=== PATIENT | female | born 1965 | race Caucasian/White ===

== ENCOUNTER 2020-06-15 13:40 | Emergency (ER) | payer OTHER ==
[~2020-06-15] VITALS: Ht 172.7 cm; Wt 145.1 kg
[2020-06-15 14:28] LABS: BASO % 0.3 % (0.0-1.0); EOS # 0.3 10*3/uL (0.0-0.4); EOS % 2.9 % (1.0-4.0); HEMATOCRIT 33.4 % (37.0-47.0); LYMPH # 1.3 10*3/uL (1.3-4.4); LYMPH % 13.2 % (27.0-41.0); MEAN CELL VOLUME 95.7 fl (81.0-99.0); MEAN CORPUSCULAR HGB 29.2 pg (27.0-31.0); MEAN CORPUSCULAR HGB CONC 30.5 g/dl (33.0-37.0); MEAN PLATELET VOLUME 9.9 fl (9.6-12.3); MONO # 0.5 10*3/uL (0.1-1.0); MONO % 5.4 % (3.0-9.0); NEUT # 7.8 10*3/uL (2.3-7.9); PLATELET COUNT AUTOMATED 116 10*3/uL (130-400); RED BLOOD COUNT 3.49 10*6/uL (4.10-5.10); RED CELL DISTRI WIDTH 13.8 % (0-14.5); WHITE BLOOD COUNT 10.1 10*3/uL (4.8-10.8)
[2020-06-15 14:42] LABS: ALBUMIN 3.3 gm/dl (3.1-4.5); CREATININE 1.6 mg/dL (0.55-1.02); POTASSIUM 4.3 mmol/L (3.5-5.1); TOTAL PROTEIN 7.9 gm/dL (6.4-8.2)
== END 2020-06-15 18:03 | disposition short-term general hospital (02) ==
LOC: ED 13:40
PROVIDERS: Nurse Practitioner Family
DX: N13.2 Hydronephrosis with renal and ureteral calculous obstruction (principal); J44.9 Chronic obstructive pulmonary disease, unspecified; E11.9 Type 2 diabetes mellitus without complications

== ENCOUNTER → 2020-08-15 | Outpatient (CLI) | payer OTHER ==
[2020-08-15 11:36] LABS: BASO % 0.5 % (0.0-1.0); EOS # 0.3 10*3/uL (0.0-0.4); EOS % 3.6 % (1.0-4.0); HEMATOCRIT 33.4 % (37.0-47.0); LYMPH # 1.6 10*3/uL (1.3-4.4); LYMPH % 21.3 % (27.0-41.0); MEAN CELL VOLUME 94.1 fl (81.0-99.0); MEAN CORPUSCULAR HGB 27.9 pg (27.0-31.0); MEAN CORPUSCULAR HGB CONC 29.6 g/dl (33.0-37.0); MEAN PLATELET VOLUME 10.6 fl (9.6-12.3); MONO # 0.4 10*3/uL (0.1-1.0); MONO % 5.5 % (3.0-9.0); NEUT # 5.3 10*3/uL (2.3-7.9); NEUT % 68.7 % (47.0-73.0); PLATELET COUNT AUTOMATED 134 10*3/uL (130-400); RED BLOOD COUNT 3.55 10*6/uL (4.10-5.10); RED CELL DISTRI WIDTH 16.2 % (0-14.5); WHITE BLOOD COUNT 7.7 10*3/uL (4.8-10.8)
[2020-08-15 11:38] LABS: BILIRUBIN Negative (Negative); BLOOD 2+ (Negative); CLARITY Cloudy (Clear); COLOR Yellow (Yellow); GLUCOSE Negative (Negative); KETONE Negative (Negative); LEUKO ESTERASE 2+ (Negative); NITRITE Negative (Negative); UROBILINOGEN 0.2 E.U./dl (0.0-1.0)
[2020-08-15 11:54] LABS: ALBUMIN 3.8 gm/dl (3.1-4.5); CREATININE 2.67 mg/dL (0.55-1.02); POTASSIUM 3.9 mmol/L (3.5-5.1); TOTAL PROTEIN 8.6 gm/dL (6.4-8.2)
[2020-08-15 11:55] LABS: BACTERIA 2+; EPITHELIAL CELLS 16-20; RBC 31-40 rbc/hpf (0-2); THYROXINE (T4) TOTAL 6.4 ug/dl (4.8-13.9); WBC 41-50 wbc/hpf (0-5)
== END | disposition home or self-care (01) ==
LOC: LAB 11:09
PROVIDERS: ATTEND Urology
DX: N20.0 Calculus of kidney (principal); R31.9 Hematuria, unspecified

== ENCOUNTER → 2020-08-17 | Outpatient (CLI) | payer OTHER | END | disposition home or self-care (01) | LOC: LAB 00:33 | PROVIDERS: ATTEND Urology | DX: N20.0 Calculus of kidney (principal); R31.9 Hematuria, unspecified ==

== ENCOUNTER → 2020-09-06 | Outpatient (CLI) | payer OTHER | END | disposition home or self-care (01) | LOC: CT 11:00 | PROVIDERS: ATTEND Urology | DX: N13.30 Unspecified hydronephrosis (principal); N20.0 Calculus of kidney ==

== ENCOUNTER → 2020-11-13 | Outpatient (CLI) | payer OTHER | END | disposition home or self-care (01) | LOC: CT 12:30 | PROVIDERS: ATTEND Urology | DX: N20.0 Calculus of kidney (principal); K57.30 Diverticulosis of large intestine without perforation or abscess without bleeding ==

== ENCOUNTER → 2021-03-05 | Outpatient (CLI) | payer OTHER | END | disposition home or self-care (01) | LOC: US 02-28 16:00 | PROVIDERS: ATTEND Urology | DX: N20.0 Calculus of kidney (principal) ==

== ENCOUNTER → 2021-04-11 | Outpatient (CLI) | payer OTHER ==
[2021-04-11 13:38] LABS: CREATININE 1.88 mg/dL (0.55-1.02)
== END | disposition home or self-care (01) ==
LOC: CT 12:53
PROVIDERS: Radiology Diagnostic Radiology; ATTEND Urology
DX: Z01.812 Encounter for preprocedural laboratory examination (principal); R31.9 Hematuria, unspecified

== ENCOUNTER → 2021-04-22 | Outpatient (CLI) | payer OTHER ==
[2021-04-22 09:05] LABS: BILIRUBIN Negative (Negative); BLOOD Negative (Negative); CLARITY Clear (Clear); COLOR Yellow (Yellow); GLUCOSE Negative (Negative); KETONE Negative (Negative); LEUKO ESTERASE 1+ (Negative); NITRITE Negative (Negative); SPECIFIC GRAVITY 1.015 (1.001-1.030); UROBILINOGEN 0.2 E.U./dl (0.0-1.0)
[2021-04-22 10:13] LABS: WBC 51-100 wbc/hpf (0-5)
[2021-04-22 10:14] LABS: BACTERIA 1+; YEAST TRACE
== END | disposition home or self-care (01) ==
LOC: LAB 07:53 → CT 08:00
PROVIDERS: ATTEND Urology
DX: N20.0 Calculus of kidney (principal); R31.9 Hematuria, unspecified; I25.10 Atherosclerotic heart disease of native coronary artery without angina pectoris; M51.36 Other intervertebral disc degeneration, lumbar region

== ENCOUNTER → 2021-05-22 | Outpatient (CLI) | payer OTHER ==
[2021-05-22 10:28] LABS: BASO % 0.6 % (0.0-1.0); EOS # 0.3 10*3/uL (0.0-0.4); EOS % 4.1 % (1.0-4.0); HEMATOCRIT 33.8 % (37.0-47.0); LYMPH # 1.7 10*3/uL (1.3-4.4); LYMPH % 23.7 % (27.0-41.0); MEAN CELL VOLUME 96.3 fl (81.0-99.0); MEAN CORPUSCULAR HGB 30.2 pg (27.0-31.0); MEAN CORPUSCULAR HGB CONC 31.4 g/dl (33.0-37.0); MEAN PLATELET VOLUME 9.8 fl (9.6-12.3); MONO # 0.4 10*3/uL (0.1-1.0); MONO % 5.8 % (3.0-9.0); NEUT # 4.6 10*3/uL (2.3-7.9); NEUT % 65.2 % (47.0-73.0); PLATELET COUNT AUTOMATED 113 10*3/uL (130-400); RED BLOOD COUNT 3.51 10*6/uL (4.10-5.10); RED CELL DISTRI WIDTH 13.8 % (0-14.5); WHITE BLOOD COUNT 7.1 10*3/uL (4.8-10.8)
[2021-05-22 10:43] LABS: ALBUMIN 3.5 gm/dl (3.1-4.5); CREATININE 1.83 mg/dL (0.55-1.02); POTASSIUM 4.9 mmol/L (3.5-5.1); TOTAL PROTEIN 7.8 gm/dL (6.4-8.2)
== END | disposition home or self-care (01) ==
LOC: LAB 10:12
PROVIDERS: ATTEND Urology
DX: Z01.812 Encounter for preprocedural laboratory examination (principal)

== ENCOUNTER → 2021-07-15 | Outpatient (CLI) | payer OTHER | END | disposition home or self-care (01) | LOC: CT 10:44 | PROVIDERS: ATTEND Urology | DX: N20.0 Calculus of kidney (principal); K57.30 Diverticulosis of large intestine without perforation or abscess without bleeding; R16.1 Splenomegaly, not elsewhere classified ==

== ENCOUNTER 2022-06-22 19:02 | Emergency (ER) | payer OTHER ==
[~2022-06-22] VITALS: Ht 172.7 cm; Wt 136.1 kg
== END 2022-06-22 23:41 | disposition home or self-care (01) ==
LOC: ED 19:02
DX: S20.212A Contusion of left front wall of thorax, initial encounter (principal); J44.9 Chronic obstructive pulmonary disease, unspecified; Z88.6 Allergy status to analgesic agent; Z88.5 Allergy status to narcotic agent; Z98.890 Other specified postprocedural states; Z98.51 Tubal ligation status; W18.39XA Other fall on same level, initial encounter; Y93.89 Activity, other specified; Y92.512 Supermarket, store or market as the place of occurrence of the external cause; Y99.8 Other external cause status

== ENCOUNTER → 2022-09-22 | Outpatient (CLI) | payer OTHER | END | disposition home or self-care (01) | LOC: US 08:30 | PROVIDERS: ATTEND Urology | DX: N20.0 Calculus of kidney (principal); N13.30 Unspecified hydronephrosis ==

== ENCOUNTER 2025-05-01 12:05 | Emergency (ER) | payer OTHER ==
[~2025-05-01] VITALS: Ht 172.7 cm; Wt 145.1 kg
[~2025-05-01 12:05] MED LIST: ASPIRIN ADULT L81 M1 PO; ATORVASTATIN CA10 M1 PO; AURYXIA210 MG PO; BUDESONIDE-FO10.2 G1 INH; BUSPIRONE HCL30 MG PO; LEADER NATUR1000 MCG PO; LIDOCAINE-PRIL1 EACH T; LORAZEPAM1 MG PO; METOPROLOL SUC100 M1 PO; MIRTAZAPINE15 M2 PO; OMEPRAZOLE40 MG PO; Percocet 325 MG1 TAB PO; VENTOLIN 02.5 MG/3 M INH; VITAMIN D350 MC2 PO; ZOLOFT100 MG PO
[2025-05-01 12:40] LABS: BASO # 0.1 10*3/uL (0.0-0.1); BASO % 0.4 % (0.0-1.0); EOS # 0.2 10*3/uL (0.0-0.4); EOS % 1.3 % (1.0-4.0); MEAN CELL VOLUME 98.7 fl (81.0-99.0); MEAN CORPUSCULAR HGB 30.9 pg (27.0-31.0); MEAN PLATELET VOLUME 9.4 fl (9.6-12.3); MONO # 0.5 10*3/uL (0.1-1.0); MONO % 4.1 % (3.0-9.0); NEUT # 9.3 10*3/uL (2.3-7.9); NEUT % 80.4 % (47.0-73.0); NUCLEATED RED BLOOD CELL 0.0 10*3/uL (0.0-0.0); NUCLEATED RED BLOOD CELL 0.2 % (0.0-0.0); PLATELET COUNT AUTOMATED 167 10*3/uL (130-400); RED CELL DISTRI WIDTH 14.3 % (0-14.5)
[2025-05-01 13:01] LABS: BUN 30.0 mg/dl (9-23); SGPT/ALT 21.0 U/L (5-49)
[2025-05-01] MEDS ORDERED: SODIUM CHLORIDE 0.9% 1,000 ML IV ONE (13:25)
== END 2025-05-01 16:32 | disposition home or self-care (01) ==
LOC: ED 12:05
PROVIDERS: Internal Medicine
DX: S09.90XA Unspecified injury of head, initial encounter (principal); I12.9 Hypertensive chronic kidney disease with stage 1 through stage 4 chronic kidney disease, or unspecified chronic kidney disease; E11.22 Type 2 diabetes mellitus with diabetic chronic kidney disease; N18.6 End stage renal disease; K21.9 Gastro-esophageal reflux disease without esophagitis; Z79.82 Long term (current) use of aspirin; Z79.899 Other long term (current) drug therapy; Z88.5 Allergy status to narcotic agent; Z90.710 Acquired absence of both cervix and uterus; Z98.890 Other specified postprocedural states; Z99.2 Dependence on renal dialysis; W18.39XA Other fall on same level, initial encounter; Y93.89 Activity, other specified; Y92.89 Other specified places as the place of occurrence of the external cause; Y99.8 Other external cause status

== ENCOUNTER 2025-05-10 10:57 | Emergency (ER) | payer OTHER ==
[~2025-05-10] VITALS: Ht 172.7 cm; Wt 144.2 kg
[2025-05-10] MEDS ORDERED: SEVELAMER HCL800 MG PO (11:56)
[2025-05-10] MEDS ORDERED: Ondansetron4 MG PO (11:57)
[2025-05-10] MEDS ORDERED: Lasix80 MG PO (11:58)
[2025-05-10] MEDS ORDERED: PRISTIQ50 MG PO (11:59)
[2025-05-10] MEDS ORDERED: VISTARIL25 MG PO (11:59)
[2025-05-10] MEDS ORDERED: NATURE'S BLEND F1 MG PO (12:01)
[2025-05-10 12:11] LABS: BASO # 0.1 10*3/uL (0.0-0.1); BASO % 0.4 % (0.0-1.0); EOS # 0.1 10*3/uL (0.0-0.4); EOS % 1.1 % (1.0-4.0); MEAN CELL VOLUME 100.3 fl (81.0-99.0); MEAN CORPUSCULAR HGB 30.7 pg (27.0-31.0); MEAN PLATELET VOLUME 9.8 fl (9.6-12.3); MONO # 0.7 10*3/uL (0.1-1.0); MONO % 5.8 % (3.0-9.0); NEUT # 9.8 10*3/uL (2.3-7.9); NEUT % 79.4 % (47.0-73.0); NUCLEATED RED BLOOD CELL 0.0 % (0.0-0.0); NUCLEATED RED BLOOD CELL 0.0 10*3/uL (0.0-0.0); PLATELET COUNT AUTOMATED 147 10*3/uL (130-400); RED CELL DISTRI WIDTH 14.2 % (0-14.5)
[2025-05-10 12:23] LABS: ACT PARTIAL THROMBO TIME 25.1 SECONDS (20.0-32.1)
[2025-05-10 12:34] LABS: BUN 24.0 mg/dl (9-23); SGPT/ALT 27.0 U/L (5-49)
== END 2025-05-10 15:06 | disposition home or self-care (01) ==
LOC: ED 10:57
PROVIDERS: Internal Medicine
DX: R00.2 Palpitations (principal); R07.89 Other chest pain; E11.22 Type 2 diabetes mellitus with diabetic chronic kidney disease; I12.0 Hypertensive chronic kidney disease with stage 5 chronic kidney disease or end stage renal disease; N18.6 End stage renal disease; Z99.2 Dependence on renal dialysis; Z88.6 Allergy status to analgesic agent; Z88.5 Allergy status to narcotic agent; Z79.899 Other long term (current) drug therapy; Z79.82 Long term (current) use of aspirin; Z90.711 Acquired absence of uterus with remaining cervical stump; Z98.890 Other specified postprocedural states; Z87.891 Personal history of nicotine dependence